=== PATIENT | female | born 1995 | race Caucasian/White ===

== ENCOUNTER 2018-06-24 23:22 | Emergency (ER) | payer OTHER ==
[~2018-06-24] VITALS: Ht 152.4 cm; Wt 52.3 kg
[2018-06-25] MEDS ORDERED: LORazepam 2 MG TABLET PO ONE (01:45)
[2018-06-25 02:19] VITALS: BP 115/62
== END 2018-06-25 02:22 | disposition home or self-care (01) ==
LOC: EMS 23:27
DX: F41.9 Anxiety disorder, unspecified (principal); Z88.6 Allergy status to analgesic agent; Z88.8 Allergy status to other drugs, medicaments and biological substances